=== PATIENT | female | born 1980 | race Caucasian/White ===

== ENCOUNTER 2017-06-14 00:45 | Inpatient (IN) | payer OTHER ==
[2017-06-14 02:48] LABS: Add Diff/Slide Review? Slide Review Added; Comments Flag Yes; Hematocrit 29 % (35-47); Hemoglobin 9.3 g/dl (12.0-16.0); Mean Corpuscular HGB Conc 32 g/dl (31-36); Mean Corpuscular Hemoglobin 24 pg (27-31); Mean Corpuscular Volume 75 fL (80-97); Mean Platelet Volume 9 um3 (7.4-10.4); Red Blood Count 3.91 10^6/ul (4.0-5.4); Red Cell Distribution Width 15 % (10.5-15); White Blood Count 16.1 10^3/ul (3.5-10.8)
[2017-06-14 03:15] LABS: Microcytosis 2+
[2017-06-14] MEDS ORDERED: Glycerin ADULT SUPP PR PRN (09:25)
[2017-06-14] MEDS ORDERED: Measles, Mumps,Rubella VACC* 0.5 ML/VIAL SUBCUT ONE (09:25)
[2017-06-14] MEDS ORDERED: Acetaminophen TAB* 325 MG PO PRN (09:25)
[2017-06-14] MEDS ORDERED: Simethicone TAB* 80 MG TAB.CHEW PO SCH (12:30)
[2017-06-14] MEDS: Docusate CAP* 100 MG PO SCH (13:12)
[2017-06-14] MEDS: Ibuprofen TAB* 600 MG PO PRN (13:12)
[2017-06-14] MEDS: Witch Hazel PAD* JAR TOPICAL PRN (13:13)
[2017-06-14] MEDS: Dibucaine 1% 28.35 GM TUBE PR PRN (13:14)
[2017-06-15 07:13] LABS: Hematocrit 22 % (35-47); Hemoglobin 7.3 g/dl (12.0-16.0); Mean Corpuscular HGB Conc 33 g/dl (31-36); Mean Corpuscular Hemoglobin 24 pg (27-31); Mean Platelet Volume 9 um3 (7.4-10.4); Red Cell Distribution Width 15 % (10.5-15); White Blood Count 14.8 10^3/ul (3.5-10.8)
[2017-06-15 07:15] LABS: Comments Flag Yes; Mean Corpuscular Volume 75 fL (80-97)
[2017-06-15] MEDS: Ferrous Gluconate TAB* 324 MG TAB PO SCH ×2 (08:33→20:35)
[2017-06-15] MEDS: Docusate CAP* 100 MG PO SCH ×4 (08:33→20:35)
[2017-06-15] MEDS: Ibuprofen TAB* 600 MG PO PRN ×3 (08:35→20:36)
--- NOTE | 2017-06-15 21:03 | PTEDU ---
Patient Name: BENNY VIDAL BENNY VIDAL selected video: Follow Me Mum: The [employer] to Successful to view on at 9:00:59 PM from [email or web address]
[2017-06-16] MEDS: Ibuprofen TAB* 600 MG PO PRN ×2 (03:10→09:04)
[2017-06-16 06:50] LABS: Hematocrit 21 % (35-47); Hemoglobin 7.3 g/dl (12.0-16.0); Mean Corpuscular HGB Conc 34 g/dl (31-36); Mean Corpuscular Hemoglobin 26 pg (27-31); Mean Platelet Volume 8 um3 (7.4-10.4); Red Blood Count 2.85 10^6/ul (4.0-5.4); Red Cell Distribution Width 15 % (10.5-15); White Blood Count 10.2 10^3/ul (3.5-10.8)
[2017-06-16 06:51] LABS: Comments Flag Yes
[2017-06-16 06:52] LABS: Mean Corpuscular Volume 75 fL (80-97)
[2017-06-16 07:57] VITALS: BP 102/52
[2017-06-16] MEDS: Docusate CAP* 100 MG PO SCH ×2 (09:04→13:58)
[2017-06-16] MEDS: Ferrous Gluconate TAB* 324 MG TAB PO SCH (09:04)
[2017-06-16] MEDS: Witch Hazel PAD* JAR TOPICAL PRN (09:05)
[2017-06-16] MEDS: Dibucaine 1% 28.35 GM TUBE PR PRN (09:05)
[2017-06-16] MEDS ORDERED: Influenza VAC *QUAD* 2017-18* 0.5 ML SYRINGE IM ONE (10:33)
--- NOTE | 2017-06-16 13:24 | PTEDU ---
Patient Name: BENNY VIDAL BENNY VIDAL selected video: Follow Me Mum: The Zhang to Successful to view on at 1:22:32 PM from [email or web address]
--- NOTE | 2017-06-16 13:57 | PTEDU ---
Patient Name: BENNY VIDAL BENNY VIDAL selected video: BBOB: Bonding Through Massage to view on 06/16/2017 at 1 :55:56 PM from [email or web address]
[2017-06-17] MEDS ORDERED: Influenza VAC *QUAD* 2017-18* 0.5 ML SYRINGE IM ONE (09:00)
== END 2017-06-16 16:00 | disposition home or self-care (01) | DRG 560 ==
LOC: MCHOBOUT 00:45 → MCHOB 01:32
PROVIDERS: ADMIT Midwife; ATTEND Midwife
PROC: 10E0XZZ Delivery of Products of Conception, External Approach (ICD-10-PCS; principal; 2017-06-14)
PROC: 0HQ9XZZ Repair Perineum Skin, External Approach (ICD-10-PCS; 2017-06-14)
DX: O99.824 Streptococcus B carrier state complicating childbirth (principal); O98.32 Other infections with a predominantly sexual mode of transmission complicating childbirth; O48.0 Post-term pregnancy; O70.0 First degree perineal laceration during delivery; A60.00 Herpesviral infection of urogenital system, unspecified; O77.0 Labor and delivery complicated by meconium in amniotic fluid; O90.81 Anemia of the puerperium; D64.9 Anemia, unspecified; Z3A.40 40 weeks gestation of pregnancy; Z37.0 Single live birth
CPT/HCPCS: 36415; 85025; 86850; 86900; 86901; 90686; A9270-GY; J2540